=== PATIENT | female | born 1995 | race Two or more races ===

== ENCOUNTER 2024-11-03 10:50 | Day surgery (SDC) | payer MEDICAID, SELFPAY ==
--- NOTE | 2024-10-31 09:28 | EKG_ITS ---
[facility] Test Date: 2024-10-31 Pat Name: ARMIN ANGUIANO Department: Room: - Gender: Female House Cleaner: MARRY : 1995 Requested By: Gael Cobos Order Number: [id number] Reading MD: Gael Cobos Measurements Intervals [place] Rate: 76 P: 53 [place]: 203 QRS: 58 QRSD: 90 T: 55 QT: 351 QTc: 396 Interpretive Statements SINUS RHYTHM WITH SINUS ARRHYTHMIA No previous ECG available for comparison /store/S0/[id number]/ecg/[id number].pdf
[2024-10-31 09:34] VITALS: BMI 32.9
[2024-10-31 10:22] LABS: Collection Type, Urine Clean Catch
[2024-10-31 11:34] LABS: Bilirubin,Urine Negative (Negative); Blood,Urine Negative (Negative); Clarity,Urine Clear (Clear/Hazy); Color,Urine Lt-Yellow (Lt Yel-Yel); Glucose, Urine Negative (Negative); Ketones,Urine Negative (Negative); Leukocyte Esterase,Urine Negative (Negative); Nitrite,Urine Negative (Negative); Protein,Urine Negative (Neg - Trace); RBC,Urine 2 /hpf (0-3); Specific Gravity,Urine 1.008 (1.001-1.035); Squamous Epithelial Cell,Urine 7 /hpf (0-5); Urobilinogen,Urine Negative mg/dL (0.0-1.0); WBC,Urine 7 /hpf (0-5)
[2024-10-31 11:36] LABS: Basophils # (Auto) 0.1 Thou/mm3 (0.0-0.2); Basophils % (Auto) 1 % (0-2.5); Eosinophils # (Auto) 0.1 Thou/mm3 (0.0-0.5); Eosinophils % (Auto) 2 % (0-10); Hematocrit 38.8 % (36.0-46.0); Hemoglobin 13.5 g/dL (12.0-16.0); Immature Granulocytes % (Auto) 0 % (0-0); Immature Granulocytes Auto 0.02 Thou/mm3 (0.00-0.00); Lymphocytes # (Auto) 2.5 Thou/mm3 (1.0-4.8); Lymphocytes % (Auto) 29 % (10-50); Mean Corpuscular HGB Conc 34.8 g/dl (31.0-37.0); Mean Corpuscular Hemoglobin 33.7 pg (25.0-35.0); Mean Corpuscular Volume 97 fL (80-100); Monocytes # (Auto) 0.7 Thou/mm3 (0.0-0.8); Monocytes % (Auto) 8 % (0-12); Neutrophils # (Auto) 5.1 Thou/mm3 (1.8-7.7); Neutrophils % (Auto) 60 % (37-80); Nucleated Red Blood Cell % 0 /100 WBC (0); Platelet Count 139 Thou/mm3 (140-440); RDW Standard Deviation 47.4 fL (36.4-46.3); Red Blood Count 4.01 Miln/mm3 (4.00-5.20); White Blood Count 8.5 Thou/mm3 (3.6-11.0)
[2024-10-31 11:37] LABS: HCG Qualitative,Urine Negative
[2024-10-31 11:38] LABS: Partial Thromboplastin Time 29.1 Seconds (22.0-36.0)
[2024-10-31 11:47] LABS: Alanine Aminotransferase 53 U/L (10-49); Albumin, Serum 4.5 gm/dL (3.5-5.0); Albumin/Globulin Ratio 1.5 (1.2-2.2); Alkaline Phosphatase 169 U/L (46-116); Anion Gap 7 (7-16); Aspartate Amino Transferase 37 U/L (0-34); BUN/Creatinine Ratio 14 Ratio (12-20); Bilirubin,Total 1.2 mg/dL (0.3-1.2); Blood Urea Nitrogen 10 mg/dL (9-23); Calcium 8.8 mg/dL (8.3-10.6); Calcium (Corrected) 8.8 mg/dL (8.5-10.1); Carbon Dioxide 23.8 mMol/L (20.0-31.0); Chloride 110 mMol/L (98-107); Creatinine (Component) 0.7 mg/dL (0.6-1.3); Estimated Creatinine Clearance 124.4 mL/min (>60); Globulin 3.1 gm/dL (2.3-3.5); Glucose 102 mg/dL (74-106); Osmolality,Calculated 280 (275-295); Potassium 3.2 mMol/L (3.4-5.1); Sodium 141 mMol/L (136-145); Total Protein 7.6 gm/dL (5.7-8.2); eGFR > 60 See Note
[2024-11-03] VITALS (8 sets, daily range): BP systolic 113–128; BP diastolic 70–94; PULSE 79–108; RESP 12–20; TEMP 36.6–36.9; O2SAT 94–98; BMI 32.4
[2024-11-03] MEDS: RINGERS LACTATED 1000 ML 1,000 ML 60 ML IV (11:24)
--- NOTE | 2024-11-03 16:30 | SUR.PHASEI ---
pt received from OR in recovery bay 2. pt asleep but responds to voice, breathing unlabored on room air. v/s stable. pt dressing to right breast cdi, breast binder in place. report received from Cullen FLORIAN and Dr. Huertas.
--- NOTE | 2024-11-03 16:57 | ESOP_ITS ---
Date of Procedure 11/03/24 Pre Op Diagnosis Mass right breast at 10 o'clock position Post Op Diagnosis Same rule out cancer Procedure Ultrasound-guided localization and lumpectomy right breast frozen section. On 11/03/2024 Findings This patient had a hard mass in the right breast this was identified on the ultrasound and Kopan wire was inserted the mass was removed it was examined by the pathologist and suggested to remove 1 more section medially for added margin. He felt that there may be cancer. Procedure Description The patient is interviewed in the preop area and site and side were marked. The procedure was discussed in great detail with the patient and the family member. All questions were answered and informed consent is obtained. Patient was then taken to the operating room and patient is positioned supine on the operating table. The general anesthesia was administered in a satisfactory manner. Realtime ultrasound is carried out and mass is identified and localized. A Kopan hookwire was inserted into the tumor under ultrasound guidance under aseptic precautions. After that patient is prepped and draped in usual manner. The above-mentioned mass is identified again. Local anesthesia 0.25% Marcaine with epinephrine is infiltrated. Curvilinear transverse incision is made at 10 o'clock position. The upper and lower flaps were developed to the level of the breast and subcutaneous tissue. The flaps are extended medially and laterally. A margin is a included in the resection. Breast parenchymal incision is made and carried to the pectoral fascia in the circumferential manner. Hemostasis is achieved. The mass is removed in its entirety with a margin. The excision cavity is examined from the inside and there are no other masses. The specimen is sent to the pathologist for rapid frozen section. The pathologist thought that it could be a cancer. I requested that further sleeved margin may be taken from the medial side of the excision cavity. Otherwise the margins were not involved. Again patient underwent resection of that margin. This was sent off as a separate specimen marked anatomically. Hemostasis is again achieved. Specimen is sent off for pathologic examination. The breast tissue and subcutaneous tissues approximated by 3-0 Vicryl interrupted stitches. Skin is approximated by 4-0 Monocryl continuous subcuticular stitches. Steritapes are applied. Patient tolerated the procedure very well complications none. Anesthesia GETA Drains None. Implants None. Pathology / specimen Other (Right breast lumpectomy with the needle wire localization at 10 o'clock position. Second specimen further margin resection from the medial side of the excision cavity.) Estimated Blood Loss 5 Condition Stable Disposition PACU Surgeon Gael Cobos MD Surgical Staff Operation Date: 11/03/24 13:15 Case Staff Anesthesiologist: Mckay Huertas RNwatershed program manager: Raysa Hsieh RN tag marker traveler Brandie is surgical device sales representative with the student.
--- NOTE | 2024-11-03 17:30 | SUR.PHASEII ---
pt able to tolerate oral fluids without difficulty swallowing or nasuea/vomiting.
--- NOTE | 2024-11-03 17:41 | SUR.PHASEII ---
pt awake and alert, breathing unlabored on room air. v/s stable. pt dressing to right breast cdi. pt able to ambulate to wheelchair with steady gait. d/c instructions given with mother and s/o Cam in room, all questions answered. pt d/c via wheelchair with all belongings.
== END 2024-11-03 17:41 | disposition home or self-care (01) ==
PROVIDERS: PCP Nurse Practitioner; Referring Provider Specialist; Visit Provider Specialist
PROC: (CPT 19301; principal; 2024-11-03 13:00)
DX: C50.811 Malignant neoplasm of overlapping sites of right female breast (principal); Z01.810 Encounter for preprocedural cardiovascular examination
CPT/HCPCS: 19301; 36415; 80053; 81001; 81025; 85025; 85730; 93005; A4217; A4649; J0131; J0690; J1100; J2704; J2765; J3010; J3490; J7120

== ENCOUNTER 2024-11-24 08:35 | Day surgery (SDC) | payer MEDICAID, SELFPAY ==
[2024-11-21 09:48] VITALS: BMI 32.1
[2024-11-21 11:14] LABS: Collection Type, Urine Clean Catch
[2024-11-21 11:32] LABS: Basophils # (Auto) 0.1 Thou/mm3 (0.0-0.2); Basophils % (Auto) 1 % (0-2.5); Eosinophils # (Auto) 0.1 Thou/mm3 (0.0-0.5); Eosinophils % (Auto) 1 % (0-10); Hematocrit 39.3 % (36.0-46.0); Hemoglobin 13.5 g/dL (12.0-16.0); Immature Granulocytes % (Auto) 0 % (0-0); Immature Granulocytes Auto 0.02 Thou/mm3 (0.00-0.00); Lymphocytes # (Auto) 0.9 Thou/mm3 (1.0-4.8); Lymphocytes % (Auto) 9 % (10-50); Mean Corpuscular HGB Conc 34.4 g/dl (31.0-37.0); Mean Corpuscular Hemoglobin 32.8 pg (25.0-35.0); Mean Corpuscular Volume 96 fL (80-100); Monocytes # (Auto) 0.4 Thou/mm3 (0.0-0.8); Monocytes % (Auto) 4 % (0-12); Neutrophils # (Auto) 8.2 Thou/mm3 (1.8-7.7); Neutrophils % (Auto) 85 % (37-80); Nucleated Red Blood Cell % 0 /100 WBC (0); Platelet Count 155 Thou/mm3 (140-440); RDW Standard Deviation 46.4 fL (36.4-46.3); Red Blood Count 4.11 Miln/mm3 (4.00-5.20); White Blood Count 9.7 Thou/mm3 (3.6-11.0)
[2024-11-21 11:35] LABS: Bilirubin,Urine Negative (Negative); Blood,Urine Negative (Negative); Clarity,Urine Clear (Clear/Hazy); Color,Urine Yellow (Lt Yel-Yel); Glucose, Urine Negative (Negative); Ketones,Urine Trace (Negative); Leukocyte Esterase,Urine Negative (Negative); Nitrite,Urine Negative (Negative); Protein,Urine Negative (Neg - Trace); RBC,Urine 5 /hpf (0-3); Specific Gravity,Urine 1.024 (1.001-1.035); Squamous Epithelial Cell,Urine 1 /hpf (0-5); Urobilinogen,Urine Negative mg/dL (0.0-1.0); WBC,Urine 1 /hpf (0-5)
[2024-11-21 11:41] LABS: Partial Thromboplastin Time 29.2 Seconds (22.0-36.0); Prothrombin Time 11.4 Seconds (9.0-12.2)
[2024-11-21 11:43] LABS: Alanine Aminotransferase 48 U/L (10-49); Albumin, Serum 4.6 gm/dL (3.5-5.0); Albumin/Globulin Ratio 1.6 (1.2-2.2); Alkaline Phosphatase 161 U/L (46-116); Anion Gap 9 (7-16); Aspartate Amino Transferase 35 U/L (0-34); BUN/Creatinine Ratio 16 Ratio (12-20); Bilirubin,Total 0.9 mg/dL (0.3-1.2); Blood Urea Nitrogen 11 mg/dL (9-23); Carbon Dioxide 25.6 mMol/L (20.0-31.0); Chloride 106 mMol/L (98-107); Creatinine (Component) 0.7 mg/dL (0.6-1.3); Estimated Creatinine Clearance 122.8 mL/min (>60); Globulin 2.8 gm/dL (2.3-3.5); Glucose 101 mg/dL (74-106); Osmolality,Calculated 280 (275-295); Potassium 3.8 mMol/L (3.4-5.1); Sodium 141 mMol/L (136-145); Total Protein 7.4 gm/dL (5.7-8.2); eGFR > 60 See Note
[2024-11-21 11:47] LABS: HCG,Qualitative Serum Negative
--- NOTE | 2024-11-21 12:21 | SUR.PREOP ---
Pt is schedule for sentinel injection at 0900 with Pedro Luis.
[2024-11-24] VITALS (7 sets, daily range): BP systolic 114–123; BP diastolic 70–81; PULSE 75–94; RESP 12–18; TEMP 36.6–37; O2SAT 95–100; BMI 32.0
--- NOTE | 2024-11-24 08:58 | XR_ITS ---
Examination: Nuclear medicine lymph gland imaging [place] lymph nodes study Date and time: November 24, 2024 0858 hours INDICATIONS: Diagnosis malignant neoplasm upper outer quadrant right female breast, preop surgical excision and lymph node dissection TECHNIQUE AND FINDINGS: Informed consent provided. Timeout performed. Skin prepped over the right breast and sterile drape applied hand hygiene 1% lidocaine administered for local anesthesia 2.3 mCi technetium 90 9M filtered sulfur colloid introduced retroareolar No imaging Estimated blood loss 0 cc Patient stable condition at completion procedure IMPRESSION: Successful sentinel lymph node study as above
--- NOTE | 2024-11-24 14:00 | SUR.PHASEI ---
pt received from OR in recovery bay 1. pt asleep but responds to voice, breathing unlabored on nc 4l. v/s stable. pt dressing to right breast cdi. report received from Cullen FLORIAN and Dr. Floyd.
--- NOTE | 2024-11-24 14:23 | SUR.PHASEI ---
pt able to tolerate oral fluids without difficulty swallowing or nausea/vomiting.
--- NOTE | 2024-11-24 15:10 | SUR.PHASEII ---
pt awake and alert, breathing unlabored on room air. v/s stable. pt dressing to right breast cdi. pt able to ambulate to wheelchair with steady gait. d/c instructions given with s/o Cam and mother Juanis in room, all questions answered. pt d/c via wheelchair with all belongings.
--- NOTE | 2025-02-06 14:59 | PD.SUROPNT ---
Date of Procedure 11/24/24 Pre Op Diagnosis right breast cancer recently resected Post Op Diagnosis Same. Procedure [place] lymph node biopsy right axilla on 11/25/2023 Findings This patient had a lumpectomy right breast mass that turned out to be cancer and the margins were all clear now she is here for axillary lymph node sampling with sentinel biopsy. [place] biopsy was identified with radionucleotide and blue dye. All identifiable lymph glands were removed. Procedure Description The patient was interviewed in the preoperative room. She has already undergone the radionucleotide injection underneath the right nipple areola. Is been few hours for allowing that to migrate through the lymphatics into the sentinel lymph node. The site and side was marked and informed consent was obtained. Patient was taken to the operating room and then general anesthesia is administered in a satisfactory manner. Right arm is extended to the right side table and then the axilla was scanned with the neoprobe to see if there is any radioactivity and it was marked on the surface. The patient was then prepped and draped in usual manner. A timeout procedure is carried out. A curvilinear incision is made at the floor of the right axilla and deepened through the layers of skin and subcutaneous tissue. The radioactive lymph node was identified by neoprobe and then gently dissected and was removed. This was also the blue lymph node. After that the axilla is thoroughly examined and there were no other available lymph glands. After that hemostasis was achieved the axillary tissue was approximated by 3-0 Vicryl and the skin is approximated by 4-0 Monocryl subcuticular stitches and Steri-Strips were applied. Sterile dressing is applied. Patient Toller the procedure very well. Anesthesia GETA Drains None. Implants None. Pathology / specimen Other (Right axillary sentinel lymph nodes.) Estimated Blood Loss 5 Condition Stable Disposition PACU Surgeon Gael Cobos MD Surgical Staff Operation Date: 11/24/24 12:30 Case Staff Anesthesiologist: Leonard Floyd RN First Assistant: Linda Parish (1) Breast cancer, right Qualifiers: Breast location: upper outer quadrant of breast Estrogen receptor status: unspecified Patient sex: female Qualified Code(s): C50.411 - Malignant neoplasm of upper-outer quadrant of right female breast
== END 2024-11-24 15:10 | disposition home or self-care (01) ==
PROVIDERS: Radiology Diagnostic Radiology; PCP Nurse Practitioner; Referring Provider Specialist; Visit Provider Specialist
PROC: (CPT 19101; principal; 2024-11-24 12:15)
DX: C50.411 Malignant neoplasm of upper-outer quadrant of right female breast (principal)
CPT/HCPCS: 38525; 38792; 36415; 80053; 81001; 84703; 85025; 85610; 85730; A4217; A4649; A9541; J0131; J0690; J1100; J1885; J2250; J2405; J2704; J3010; J3490; Q9968; J0665

== ENCOUNTER 2024-12-18 08:53 | Outpatient (RCR) | payer MEDICAID, SELFPAY ==
--- NOTE | 2024-12-18 12:50 | CTCCONSULT_ITS ---
Patient: ARMIN ANGUIANO : 1995 MR#: [id number] Page 2 of 2 CONSULTATION NOTE DATE OF CONSULTATION: 12/18/2024 NAME: ARMIN ANGUIANO ACCOUNT: [id number] : 1995 AGE: 29 REFERRING PHYSICIAN: Gael Cobos MD PRIMARY PHYSICIAN: REASON FOR VISIT: New diagnosis of breast cancer ONCOLOGY HISTORY: DIAGNOSIS: Malignant neoplasm of unspecified site of right female breast [ICD10] C50.911 DATE OF DIAGNOSIS: 11/03/2024 STAGE/TNM: IA T1 N0 M0 Right breast invasive ductal carcinoma T1c NX surgical margins are negative for involvement and invasive tumor 1.5 x 1.1 x 0.8 cm histological grade low-grade cysts Scarff Gamble Milner score 4 out of 9 nuclear score 2 out of 3 surgical margins all negative closest to deep surgical margin 2 mm away from tumor final stage T1c NX M0 TREATMENT HISTORY: Care?Plan Start?Date Cycle Day Intent 12/18/2024 tamoxifen 20 mg p.o. daily HISTORY OF PRESENT ILLNESS: 29-year-old female with a new diagnosis of breast cancer. Patient do not have any children. Patient does have a history of breast cancer in the grandma. 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 None Medications Last Reconciled by Michelle Bryant RN on 12/18/2024 ALLERGIES: REVIEW OF SYSTEMS: A complete 14-point review of systems was performed and is negative except as noted in interval history. PHYSICAL EXAMINATION: VITAL SIGNS: PAIN: 0 - No pain ECOG Performance Status: 0 - Asymptomatic and fully active GENERAL APPEARANCE: Appears well, in no apparent distress, appropriately interactive. HEENT: Normocephalic, no temporal wasting, normal conjunctiva, no scleral icterus, normal hearing, lips without lesions, neck normal range of motion. CARDIOVASCULAR: Not assessed. PULMONARY: Normal respiratory effort, no respiratory distress or use of accessory muscles, speaking in full sentences, no tachypnea. EXTREMITIES: No pedal edema or cyanosis. SKIN: Normal skin appearance. NEUROLOGIC: Alert and oriented x4. PSHYCHIATRIC: Appropriate affect, mood normal, behavior normal, intact thought and speech. Breast examination reveals healing lumpectomy scar. Patient also have axillary lymph node scar but pathology did not show any lymph node. Will request pathology report for the axillary lymph node LABORATORY DATA: I have personally reviewed and interpreted each of the patient?s relevant lab tests, abnormal findings are below: Date 11/21/24 ??WHITE?BLOOD?COUNT?(Thou/mm3) 9.7 ??RED?BLOOD?COUNT?(Miln/mm3) 4.11 ??HEMOGLOBIN?(gm/dl) 13.5 ??HEMATOCRIT?(%) 39.3 ??PLATELET?COUNT?(Thou/mm3) 155 ??NEUTROPHILS?%,?AUTO?(%) 85?H ??LYMPH?%,?AUTO?(%) 9?L ??NEUTROPHILS,?AUTO?(Thou/mm3) 8.2?H ??GLUCOSE,RANDOM?(mg/dL) 101 ??BLOOD?UREA?NITROGEN?(mg/dL) 11 ??CREATININE?(mg/dL) 0.70 ??SODIUM?(mmol/L) 141 ??POTASSIUM?(mmol/L) 3.8 ??CHLORIDE?(mmol/L) 106 ??AST/SGOT?(Unit/L) 35?H ??ALT/SGPT?(Unit/L) 48 ??ALKALINE?PHOSPHATASE?(Unit/L) 161?H ??BILIRUBIN,?TOTAL?(mg/dL) 0.9 ??PROTEIN?TOTAL?(gm/dl) 7.4 ??ALBUMIN,?SERUM?(gm/dl) 4.6 ??GLOBULIN?(gm/dl) 2.8 ??ALBUMIN/GLOBULIN?RATIO 1.6 ??CALCIUM,?SERUM?(mg/dL) 9.0 ??CALCIUM?SERUM?(CORRECTED)?(mg/dL) 9.0 ASSESSMENT/PLAN: Right breast invasive ductal carcinoma at least stage I Patient has stage I breast cancer ER positive HER2 1+ I do not have axillary lymph node biopsy results No Oncotype DX Patient's tumor is 1.7 cm Will start on tamoxifen and wait for Oncotype DX results RETURN TO CLINIC: BILLING AND COMPLIANCE: I reviewed external records from providers outside my specialty as summarized above. I spent a total of 50 minutes on this patient?s care on the day of their visit excluding time spent related to any billed procedures. This time includes time spent with the patient as well as time spent documenting in the medical record, reviewing patients records and tests, obtaining history, placing orders, communicating with other healthcare professionals, counseling the patient, family or caregiver, and/or care coordination for the diagnoses above. Electronically Signed by: Thang Gallegos MD T: 12:47 PM CC: PCP: Referring: Gael Cobos This document was completed utilizing speech recognition software. Grammatical errors, random word insertions, pronoun errors, and incomplete sentences are an occasional consequence of this system due to software limitations, ambient noise, and hardware issues. Any formal questions or concerns about the content, text or information contained within the body of this dictation should be directly addressed to the provider for clarification.
== END 2024-12-22 23:59 | disposition home or self-care (01) ==
LOC: SCTC 08:53
PROVIDERS: PCP Nurse Practitioner; Referring Provider Specialist; Visit Provider Internal Medicine Hematology & Oncology
DX: C50.911 Malignant neoplasm of unspecified site of right female breast (principal); Z17.0 Estrogen receptor positive status [ER+]; Z17.21 Progesterone receptor positive status; Z17.32 Human epidermal growth factor receptor 2 negative status
CPT/HCPCS: 99213; G0463

== ENCOUNTER 2025-01-21 15:35 | Outpatient (RCR) | payer MEDICAID, SELFPAY ==
--- NOTE | 2025-02-01 22:46 | CTCFLWUP_ITS ---
Patient: ARMIN ANGUIANO : 1995 Page 4 of 6 FOLLOW UP NOTE DATE OF SERVICE: 01/21/2025 NAME: ARMIN ANGUIANO ACCOUNT: [id number] : 1995 AGE: 30 INTERVAL HISTORY: Patient is here to follow-up on her final pathology as well as Oncotype DX ONCOLOGY HISTORY: DIAGNOSIS: Malignant neoplasm of unspecified site of right female breast [ICD10] C50.911 DATE OF DIAGNOSIS: 11/03/2024 STAGE/TNM: IA T1 N0 M0 Right breast invasive ductal carcinoma T1c NX surgical margins are negative for involvement and invasive tumor 1.5 x 1.1 x 0.8 cm histological grade low-grade cysts Scarff Gamble Milner score 4 out of 9 nuclear score 2 out of 3 surgical margins all negative closest to deep surgical margin 2 mm away from tumor final stage T1c NX M0 TREATMENT HISTORY: Care?Plan Start?Date Cycle Day Intent Lupron?Depot?3.75?monthly 01/21/2025 1 28 Curative?(primary) AC?4?cy?DD?Taxol?wkly?12?wks 01/21/2025 1 7 Curative?(adjuvant) HISTORY OF PRESENT ILLNESS: 30-year-old female with a new diagnosis of breast cancer. Patient do not have any children. Patient does have a history of breast cancer in the grandma. 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 azaTHIOprine - 50 mg 1 tab Daily 2. prednisone - 5 mg 12 mg Daily 3. tamoxifen - 20 mg 1 tab Daily Medications Last Reconciled by Michelle Bryant RN on 12/18/2024 ALLERGIES: No Known Drug Allergies REVIEW OF SYSTEMS: A complete 14-point review of systems was performed and is negative except as noted in interval history. PHYSICAL EXAMINATION: VITAL SIGNS: Temperature?99.2, B/P?123/84, Oxygen?Saturation?97% Weight?185?lbs PAIN: 0 - No pain ECOG Performance Status: 0 - Asymptomatic and fully active GENERAL APPEARANCE: Appears well, in no apparent distress, appropriately interactive. HEENT: Normocephalic, no temporal wasting, normal conjunctiva, no scleral icterus, normal hearing, lips without lesions, neck normal range of motion. CARDIOVASCULAR: Not assessed. PULMONARY: Normal respiratory effort, no respiratory distress or use of accessory muscles, speaking in full sentences, no tachypnea. EXTREMITIES: No pedal edema or cyanosis. SKIN: Normal skin appearance. NEUROLOGIC: Alert and oriented x4. PSHYCHIATRIC: Appropriate affect, mood normal, behavior normal, intact thought and speech. Breast examination reveals healing lumpectomy scar. Patient also have axillary lymph node scar but pathology did not show any lymph node. Will request pathology report for the axillary lymph node LABORATORY DATA: I have personally reviewed and interpreted each of the patient?s relevant lab tests, abnormal findings are below: Date 11/21/24 ??WHITE?BLOOD?COUNT?(Thou/mm3) 9.7 ??RED?BLOOD?COUNT?(Miln/mm3) 4.11 ??HEMOGLOBIN?(gm/dl) 13.5 ??HEMATOCRIT?(%) 39.3 ??PLATELET?COUNT?(Thou/mm3) 155 ??NEUTROPHILS?%,?AUTO?(%) 85?H ??LYMPH?%,?AUTO?(%) 9?L ??NEUTROPHILS,?AUTO?(Thou/mm3) 8.2?H ??GLUCOSE,RANDOM?(mg/dL) 101 ??BLOOD?UREA?NITROGEN?(mg/dL) 11 ??CREATININE?(mg/dL) 0.70 ??SODIUM?(mmol/L) 141 ??POTASSIUM?(mmol/L) 3.8 ??CHLORIDE?(mmol/L) 106 ??AST/SGOT?(Unit/L) 35?H ??ALT/SGPT?(Unit/L) 48 ??ALKALINE?PHOSPHATASE?(Unit/L) 161?H ??BILIRUBIN,?TOTAL?(mg/dL) 0.9 ??PROTEIN?TOTAL?(gm/dl) 7.4 ??ALBUMIN,?SERUM?(gm/dl) 4.6 ??GLOBULIN?(gm/dl) 2.8 ??ALBUMIN/GLOBULIN?RATIO 1.6 ??CALCIUM,?SERUM?(mg/dL) 9.0 ??CALCIUM?SERUM?(CORRECTED)?(mg/dL) 9.0 ASSESSMENT/PLAN: Right breast invasive ductal carcinoma at least stage I Patient has stage I breast cancer ER positive HER2 1+ Patient have at least T1c tumor Oncotype DX is 24 and have 6.5% chemotherapy benefit for women of her age with the score of 21-25 Will do ovarian suppression Will order chemotherapy ORDERS: Order # Description [id number] Observatory Director [id number] Comprehensive Metabolic Panel - 12 + CBC with Auto Diff + CA 15-3 [id number] MD Follow Up 4 Week RETURN TO CLINIC: I reviewed the diagnosis, prognosis, and recommended treatment/procedure options with the patient (and/or their legal registration representative), including the potential benefits, risks, side effects and alternative therapies. We also discussed the option of no treatment and the possibility of clinical trial participation, if applicable. All questions were addressed, and they demonstrated understanding. They provided informed consent to proceed with the proposed plan of care. BILLING AND COMPLIANCE: I reviewed external records from providers outside my specialty as summarized above. I spent a total of 50 minutes on this patient?s care on the day of their visit excluding time spent related to any billed procedures. This time includes time spent with the patient as well as time spent documenting in the medical record, reviewing patients records and tests, obtaining history, placing orders, communicating with other healthcare professionals, counseling the patient, family or caregiver, and/or care coordination for the diagnoses above. Electronically Signed by: Thang Gallegos MD T: 10:44 PM CC: PCP: Referring: Kenyetta Luis This document was completed utilizing speech recognition software. Grammatical errors, random word insertions, pronoun errors, and incomplete sentences are an occasional consequence of this system due to software limitations, ambient noise, and hardware issues. Any formal questions or concerns about the content, text or information contained within the body of this dictation should be directly addressed to the provider for clarification.
== END 2025-01-22 23:59 | disposition home or self-care (01) ==
LOC: SCTC 15:35
PROVIDERS: PCP Nurse Practitioner; Referring Provider Nurse Practitioner; Visit Provider Internal Medicine Hematology & Oncology
DX: C50.911 Malignant neoplasm of unspecified site of right female breast (principal); Z17.0 Estrogen receptor positive status [ER+]; Z17.21 Progesterone receptor positive status; Z17.32 Human epidermal growth factor receptor 2 negative status
CPT/HCPCS: 99213; G0463

== ENCOUNTER 2025-02-18 12:59 | Outpatient (RCR) | payer MEDICAID, SELFPAY ==
--- NOTE | 2025-02-18 14:00 | CTCFLWUP_ITS ---
Patient: ARMIN SYKES : 1995 Page 4 of 6 FOLLOW UP NOTE DATE OF SERVICE: 02/18/2025 NAME: ARMIN SYKES ACCOUNT: [id number] : 1995 AGE: 30 INTERVAL HISTORY: Patient is yet to do a good preservation.. Patient wants to have children. Patient do not want to do long-term antiendocrine therapy. ONCOLOGY HISTORY: DIAGNOSIS: Malignant neoplasm of unspecified site of right female breast [ICD10] C50.911 DATE OF DIAGNOSIS: 11/03/2024 STAGE/TNM: IA T1 N0 M0 Right breast invasive ductal carcinoma T1c NX surgical margins are negative for involvement and invasive tumor 1.5 x 1.1 x 0.8 cm histological grade low-grade cysts Scarff Gamble Milner score 4 out of 9 nuclear score 2 out of 3 surgical margins all negative closest to deep surgical margin 2 mm away from tumor final stage T1c NX M0 TREATMENT HISTORY: Care?Plan Start?Date Cycle Day Intent Lupron?Depot?3.75?monthly 01/21/2025 1 28 Curative?(primary) AC?4?cy?DD?Taxol?wkly?12?wks 01/21/2025 1 7 Curative?(adjuvant) HISTORY OF PRESENT ILLNESS: 30-year-old female with a new diagnosis of breast cancer. Patient do not have any children. Patient does have a history of breast cancer in the grandma. 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 azaTHIOprine - 50 mg 1 tab Daily 2. prednisone - 5 mg 12 mg Daily 3. tamoxifen - 20 mg 1 tab Daily Medications Last Reconciled by Brandie Sandoval MD on 02/18/2025 ALLERGIES: No Known Drug Allergies REVIEW OF SYSTEMS: A complete 14-point review of systems was performed and is negative except as noted in interval history. PHYSICAL EXAMINATION: VITAL SIGNS: Temperature?99, B/P?139/85, Oxygen?Saturation?94% Weight?185?lbs (Change?since?01/21/25:?0?lbs) PAIN: 1 - Between no and mild pain GENERAL APPEARANCE: Appears well, in no apparent distress, appropriately interactive. HEENT: Normocephalic, no temporal wasting, normal conjunctiva, no scleral icterus, normal hearing, lips without lesions, neck normal range of motion. CARDIOVASCULAR: Not assessed. PULMONARY: Normal respiratory effort, no respiratory distress or use of accessory muscles, speaking in full sentences, no tachypnea. EXTREMITIES: No pedal edema or cyanosis. SKIN: Normal skin appearance. NEUROLOGIC: Alert and oriented x4. PSHYCHIATRIC: Appropriate affect, mood normal, behavior normal, intact thought and speech. Breast examination reveals healing lumpectomy scar. Patient also have axillary lymph node scar but pathology did not show any lymph node. Will request pathology report for the axillary lymph node LABORATORY DATA: I have personally reviewed and interpreted each of the patient?s relevant lab tests, abnormal findings are below: Date 11/21/24 ??WHITE?BLOOD?COUNT?(Thou/mm3) 9.7 ??RED?BLOOD?COUNT?(Miln/mm3) 4.11 ??HEMOGLOBIN?(gm/dl) 13.5 ??HEMATOCRIT?(%) 39.3 ??PLATELET?COUNT?(Thou/mm3) 155 ??NEUTROPHILS?%,?AUTO?(%) 85?H ??LYMPH?%,?AUTO?(%) 9?L ??NEUTROPHILS,?AUTO?(Thou/mm3) 8.2?H ??GLUCOSE,RANDOM?(mg/dL) 101 ??BLOOD?UREA?NITROGEN?(mg/dL) 11 ??CREATININE?(mg/dL) 0.70 ??SODIUM?(mmol/L) 141 ??POTASSIUM?(mmol/L) 3.8 ??CHLORIDE?(mmol/L) 106 ??AST/SGOT?(Unit/L) 35?H ??ALT/SGPT?(Unit/L) 48 ??ALKALINE?PHOSPHATASE?(Unit/L) 161?H ??BILIRUBIN,?TOTAL?(mg/dL) 0.9 ??PROTEIN?TOTAL?(gm/dl) 7.4 ??ALBUMIN,?SERUM?(gm/dl) 4.6 ??GLOBULIN?(gm/dl) 2.8 ??ALBUMIN/GLOBULIN?RATIO 1.6 ??CALCIUM,?SERUM?(mg/dL) 9.0 ??CALCIUM?SERUM?(CORRECTED)?(mg/dL) 9.0 ASSESSMENT/PLAN: Right breast invasive ductal carcinoma at least stage I Patient has stage I breast cancer ER positive HER2 1+ Patient have at least T1c tumor Oncotype DX is 22 and have 6.5% chemotherapy benefit for women of her age with the score of 21-25 Will do ovarian suppression Will order chemotherapy Patient will not be a good candidate for long-term uninterrupted antiendocrine therapy as she want to have children sooner Advised to do egg preservation and if done can get after at least 2 3 years of uninterrupted antiendocrine therapy Other option of bilateral mastectomy discussed with Ms. Sykes. If patient want to proceed with that we will refer her to tertiary center for immediate reconstruction RETURN TO CLINIC: I reviewed the diagnosis, prognosis, and recommended treatment/procedure options with the patient (and/or their legal patient representative), including the potential benefits, risks, side effects and alternative therapies. We also discussed the option of no treatment and the possibility of clinical trial participation, if applicable. All questions were addressed, and they demonstrated understanding. They provided informed consent to proceed with the proposed plan of care. BILLING AND COMPLIANCE: I reviewed external records from providers outside my specialty as summarized above. I spent a total of 50 minutes on this patient?s care on the day of their visit excluding time spent related to any billed procedures. This time includes time spent with the patient as well as time spent documenting in the medical record, reviewing patients records and tests, obtaining history, placing orders, communicating with other healthcare professionals, counseling the patient, family or caregiver, and/or care coordination for the diagnoses above. Electronically Signed by: Thang Gallegos MD T: 1:58 PM CC: PCP: Referring: Kenyetta Luis This document was completed utilizing speech recognition software. Grammatical errors, random word insertions, pronoun errors, and incomplete sentences are an occasional consequence of this system due to software limitations, ambient noise, and hardware issues. Any formal questions or concerns about the content, text or information contained within the body of this dictation should be directly addressed to the provider for clarification.
--- NOTE | 2025-03-10 16:22 | CTCFLWUP_ITS ---
Patient: ARMIN SYKES : 1995 Page 4 of 6 FOLLOW UP NOTE DATE OF SERVICE: 02/18/2025 NAME: ARMIN SYKES ACCOUNT: [id number] : 1995 AGE: 30 INTERVAL HISTORY: Patient is yet to do a good preservation.. Patient wants to have children. Patient do not want to do long-term antiendocrine therapy. Patient is requesting for genetic testing. Patient is worried if she has a genetic mutation which puts her at high risk for other cancers. She also want to know about the risk to her family. ONCOLOGY HISTORY: DIAGNOSIS: Malignant neoplasm of unspecified site of right female breast [ICD10] C50.911 DATE OF DIAGNOSIS: 11/03/2024 STAGE/TNM: IA T1 N0 M0 Right breast invasive ductal carcinoma T1c NX surgical margins are negative for involvement and invasive tumor 1.5 x 1.1 x 0.8 cm histological grade low-grade cysts Scarff Gamble Milner score 4 out of 9 nuclear score 2 out of 3 surgical margins all negative closest to deep surgical margin 2 mm away from tumor final stage T1c NX M0 TREATMENT HISTORY: Care?Plan Start?Date Cycle Day Intent Lupron?Depot?3.75?monthly 01/21/2025 1 28 Curative?(primary) AC?4?cy?DD?Taxol?wkly?12?wks 01/21/2025 1 7 Curative?(adjuvant) HISTORY OF PRESENT ILLNESS: 30-year-old female with a new diagnosis of breast cancer. Patient do not have any children. Patient does have a history of breast cancer in the grandma. 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 azaTHIOprine - 50 mg 1 tab Daily 2. prednisone - 5 mg 12 mg Daily 3. tamoxifen - 20 mg 1 tab Daily Medications Last Reconciled by Brandie Sandoval MD on 02/18/2025 ALLERGIES: No Known Drug Allergies REVIEW OF SYSTEMS: A complete 14-point review of systems was performed and is negative except as noted in interval history. PHYSICAL EXAMINATION: VITAL SIGNS: Temperature?99, B/P?139/85, Oxygen?Saturation?94% Weight?185?lbs (Change?since?01/21/25:?0?lbs) PAIN: 0 - No pain ECOG Performance Status: 0 - Asymptomatic and fully active GENERAL APPEARANCE: Appears well, in no apparent distress, appropriately interactive. HEENT: Normocephalic, no temporal wasting, normal conjunctiva, no scleral icterus, normal hearing, lips without lesions, neck normal range of motion. CARDIOVASCULAR: Not assessed. PULMONARY: Normal respiratory effort, no respiratory distress or use of accessory muscles, speaking in full sentences, no tachypnea. EXTREMITIES: No pedal edema or cyanosis. SKIN: Normal skin appearance. NEUROLOGIC: Alert and oriented x4. PSHYCHIATRIC: Appropriate affect, mood normal, behavior normal, intact thought and speech. Breast examination reveals healing lumpectomy scar. Patient also have axillary lymph node scar but pathology did not show any lymph node. Will request pathology report for the axillary lymph node LABORATORY DATA: I have personally reviewed and interpreted each of the patient?s relevant lab tests, abnormal findings are below: Date 11/21/24 ??WHITE?BLOOD?COUNT?(Thou/mm3) 9.7 ??RED?BLOOD?COUNT?(Miln/mm3) 4.11 ??HEMOGLOBIN?(gm/dl) 13.5 ??HEMATOCRIT?(%) 39.3 ??PLATELET?COUNT?(Thou/mm3) 155 ??NEUTROPHILS?%,?AUTO?(%) 85?H ??LYMPH?%,?AUTO?(%) 9?L ??NEUTROPHILS,?AUTO?(Thou/mm3) 8.2?H ??GLUCOSE,RANDOM?(mg/dL) 101 ??BLOOD?UREA?NITROGEN?(mg/dL) 11 ??CREATININE?(mg/dL) 0.70 ??SODIUM?(mmol/L) 141 ??POTASSIUM?(mmol/L) 3.8 ??CHLORIDE?(mmol/L) 106 ??AST/SGOT?(Unit/L) 35?H ??ALT/SGPT?(Unit/L) 48 ??ALKALINE?PHOSPHATASE?(Unit/L) 161?H ??BILIRUBIN,?TOTAL?(mg/dL) 0.9 ??PROTEIN?TOTAL?(gm/dl) 7.4 ??ALBUMIN,?SERUM?(gm/dl) 4.6 ??GLOBULIN?(gm/dl) 2.8 ??ALBUMIN/GLOBULIN?RATIO 1.6 ??CALCIUM,?SERUM?(mg/dL) 9.0 ??CALCIUM?SERUM?(CORRECTED)?(mg/dL) 9.0 ASSESSMENT/PLAN: Right breast invasive ductal carcinoma at least stage I Patient has stage I breast cancer ER positive HER2 1+ Patient have at least T1c tumor Oncotype DX is 24 and have 6.5% chemotherapy benefit for women of her age with the score of 21-25 Will do ovarian suppression Will order chemotherapy Patient will not be a good candidate for long-term uninterrupted antiendocrine therapy as she want to have children sooner Advised to do egg preservation and if done can get after at least 2 3 years of uninterrupted antiendocrine therapy Other option of bilateral mastectomy discussed with Ms. Sykes. If patient want to proceed with that we will refer her to tertiary center for immediate reconstruction Discussed with Ms. Sykes regarding benefits and risk of genetic testing Patient understand that may need further testing and may need counseling. Patient agreed to genetic testing. Patient will be referred to genetic counseling also. RETURN TO CLINIC: I reviewed the diagnosis, prognosis, and recommended treatment/procedure options with the patient (and/or their legal patient financial representative), including the potential benefits, risks, side effects and alternative therapies. We also discussed the option of no treatment and the possibility of clinical trial participation, if applicable. All questions were addressed, and they demonstrated understanding. They provided informed consent to proceed with the proposed plan of care. BILLING AND COMPLIANCE: I reviewed external records from providers outside my specialty as summarized above. I spent a total of 50 minutes on this patient?s care on the day of their visit excluding time spent related to any billed procedures. This time includes time spent with the patient as well as time spent documenting in the medical record, reviewing patients records and tests, obtaining history, placing orders, communicating with other healthcare professionals, counseling the patient, family or caregiver, and/or care coordination for the diagnoses above. Electronically Signed by: Thang Gallegos MD T: 4:20 PM CC: PCP: Referring: Kenyetta Luis This document was completed utilizing speech recognition software. Grammatical errors, random word insertions, pronoun errors, and incomplete sentences are an occasional consequence of this system due to software limitations, ambient noise, and hardware issues. Any formal questions or concerns about the content, text or information contained within the body of this dictation should be directly addressed to the provider for clarification.
== END 2025-02-22 23:59 | disposition home or self-care (01) ==
LOC: SCTC 12:59
PROVIDERS: PCP Nurse Practitioner; Referring Provider Nurse Practitioner; Visit Provider Internal Medicine Hematology & Oncology
DX: C50.911 Malignant neoplasm of unspecified site of right female breast (principal); Z17.0 Estrogen receptor positive status [ER+]; Z17.21 Progesterone receptor positive status; Z17.32 Human epidermal growth factor receptor 2 negative status
CPT/HCPCS: 99212; 99424; 99425; G0463

== ENCOUNTER 2025-02-26 07:58 | Outpatient (RCR) | payer MEDICAID, SELFPAY | END 2025-03-24 23:59 | disposition home or self-care (01) | LOC: SCTC 07:58 | PROVIDERS: PCP Nurse Practitioner; Referring Provider Nurse Practitioner; Visit Provider Internal Medicine Hematology & Oncology | DX: C50.911 Malignant neoplasm of unspecified site of right female breast (principal); Z17.0 Estrogen receptor positive status [ER+]; Z17.21 Progesterone receptor positive status; Z17.32 Human epidermal growth factor receptor 2 negative status | CPT/HCPCS: 36415 ==